=== PATIENT | female | born 1985 | race Caucasian/White ===

== ENCOUNTER 2021-12-03 11:58 | Emergency (ER) | payer MEDICAID ==
[~2021-12-03] VITALS: Ht 154.9 cm; Wt 66.0 kg
[2021-12-03 13:06] VITALS: BP 129/86
[2021-12-03 15:22] LABS: CHLORIDE 105 mEq/L (98-107)
[2021-12-03 15:25] LABS: BASOPHILS % 0.2 % (0.0-2.0); EOSINOPHILS % 1.6 % (0.0-5.0); HEMATOCRIT. 36.9 % (36.0-48.0); HEMOGLOBIN. 12.7 g/dL (12.0-16.0); LYMPHOCYTES % 24.7 % (20.0-50.0); MEAN CORPUSCULAR HEMOGLOBIN 30.2 pg (28.0-32.0); MEAN CORPUSCULAR VOLUME 87.4 fL (81.0-99.0); MEAN PLATELET VOLUME 7.2 fl (7.4-10.4); MONOCYTES % 5.6 % (2.0-8.0); NEUTROPHILS % 67.9 % (40.0-76.0); PLATELET 351 x1000/uL (130-400); RED BLOOD CELL COUNT 4.22 mill/uL (4.2-5.4); RED CELL DISTRIBUTION WIDTH 12.4 % (11.6-14.6)
[2021-12-03 15:48] LABS: B-HCG QUANTITATIVE 37620 mIU/mL (<3)
[2021-12-03 16:27] LABS: CLARITY URINE CLEAR (CLEAR); COLOR URINE YELLOW (YELLOW); KETONES URINE TRACE (NEGATIVE); LEUKOCYTE ESTERASE URINE TRACE (NEGATIVE); NITRITE URINE NEGATIVE (NEGATIVE); OCCULT BLOOD URINE TRACE (NEGATIVE); PROTEIN URINE NEGATIVE (NEGATIVE)
[2021-12-03] MEDS ORDERED: ONDANSETRON HCL 4MG/2ML INJ IV STA (18:02)
[2021-12-03] MEDS ORDERED: FAMOTIDINE 20MG/2ML VIAL IV STA (18:02)
[2021-12-03] MEDS ORDERED: SODIUM CHLORIDE 0.9% 1,000 ML IV ONE (18:15)
[2021-12-03] MEDS ORDERED: CEFAZOLIN 1000MG PREMIX 50 ML IV ONE (18:15)
[2021-12-03] MEDS ORDERED: METO-293 MT ×2 (19:54→20:43)
[2021-12-03] MEDS ORDERED: NITR-87 MT ×2 (19:54→20:43)
== END 2021-12-03 21:41 | disposition home or self-care (01) ==
LOC: ER 12:50
DX: O23.42 Unspecified infection of urinary tract in pregnancy, second trimester (principal); N39.0 Urinary tract infection, site not specified; O26.892 Other specified pregnancy related conditions, second trimester; R10.12 Left upper quadrant pain; O21.8 Other vomiting complicating pregnancy; Z3A.14 14 weeks gestation of pregnancy; Z98.890 Other specified postprocedural states
CPT/HCPCS: 36415; 76805; 80053; 81003; 83690; 84702; 85025; 87086; 96365; 96375; 99284; J0690; J2405; J3490; J7030